=== PATIENT | female | born 1950 | race Caucasian/White ===

== ENCOUNTER 2023-01-18 17:00 | Emergency (ER) | payer OTHER, MEDICARE ==
[~2023-01-18] VITALS: Ht 162.5 cm; Wt 90.7 kg
[2023-01-18] MEDS ORDERED: GLUMETZA500 MG PO (17:25)
[2023-01-18] MEDS ORDERED: DILTIAZEM 24HR120 M1 PO (17:26)
[2023-01-18] MEDS ORDERED: TOPROL XL25 MG PO (17:26)
[2023-01-18] MEDS ORDERED: ZESTRIL10 MG PO (17:27)
[2023-01-18] MEDS ORDERED: ZOLOFT25 MG PO (17:27)
[2023-01-18] MEDS ORDERED: LIPITOR40 MG PO (17:27)
[2023-01-18] MEDS ORDERED: ELIQUIS5 M1 PO (17:27)
[2023-01-18] MEDS ORDERED: PHARMASSURE PO (17:28)
== END 2023-01-18 20:49 | disposition home or self-care (01) ==
LOC: ED 17:00
DX: S43.014A Anterior dislocation of right humerus, initial encounter (principal); I48.91 Unspecified atrial fibrillation; I10 Essential (primary) hypertension; Z88.8 Allergy status to other drugs, medicaments and biological substances; W10.9XXA Fall (on) (from) unspecified stairs and steps, initial encounter; Y93.01 Activity, walking, marching and hiking; Y92.009 Unspecified place in unspecified non-institutional (private) residence as the place of occurrence of the external cause; Y99.8 Other external cause status

== ENCOUNTER → 2023-04-16 | Outpatient (CLI) | payer MEDICARE, OTHER ==
[~2023-04-16] MED LIST: DILTIAZEM 24HR120 M1 PO; ELIQUIS5 M1 PO; GLUMETZA500 MG PO; LIPITOR40 MG PO; PHARMASSURE PO; TOPROL XL25 MG PO; ZESTRIL10 MG PO; ZOLOFT25 MG PO
== END | disposition home or self-care (01) ==
LOC: RESCLI 02:30
PROVIDERS: ATTEND Student in an Organized Health Care Education/Training Program
DX: I48.91 Unspecified atrial fibrillation (principal); I10 Essential (primary) hypertension; E11.9 Type 2 diabetes mellitus without complications; E78.5 Hyperlipidemia, unspecified; F32.9 Major depressive disorder, single episode, unspecified; E55.9 Vitamin D deficiency, unspecified; J44.9 Chronic obstructive pulmonary disease, unspecified; Z88.5 Allergy status to narcotic agent; Z98.890 Other specified postprocedural states; Z82.49 Family history of ischemic heart disease and other diseases of the circulatory system; Z79.899 Other long term (current) drug therapy

== ENCOUNTER → 2024-04-18 | Outpatient (CLI) | payer MEDICARE | END | disposition home or self-care (01) | LOC: RESCLI 13:32 | PROVIDERS: ATTEND Student in an Organized Health Care Education/Training Program | DX: E11.9 Type 2 diabetes mellitus without complications (principal); I48.91 Unspecified atrial fibrillation; E78.5 Hyperlipidemia, unspecified; E55.9 Vitamin D deficiency, unspecified; J44.9 Chronic obstructive pulmonary disease, unspecified; J30.2 Other seasonal allergic rhinitis; F32.9 Major depressive disorder, single episode, unspecified; Z82.49 Family history of ischemic heart disease and other diseases of the circulatory system; Z88.5 Allergy status to narcotic agent; Z98.890 Other specified postprocedural states; E66.9 Obesity, unspecified; Z79.01 Long term (current) use of anticoagulants; Z79.899 Other long term (current) drug therapy; Z68.34 Body mass index [BMI] 34.0-34.9, adult ==